=== PATIENT | female | born 1965 | race Two or more races ===

== ENCOUNTER 2017-11-14 16:39 | Inpatient (IN) | payer OTHER ==
[~2017-11-14] VITALS: Ht 157.5 cm; Wt 90.7 kg
[2017-11-14 18:13] LABS: Basophils # (auto) 0 uL; Basophils % (auto) 0.5 % (0.0-2.0); Eosinophils # (auto) 0 uL; Eosinophils % (auto) 0.5 % (0.0-7.0); Hematocrit 41.9 % (36.0-46.0); Hemoglobin 14.3 g/dL (12.2-16.2); Lymphocytes # (auto) 3.2 uL; Lymphocytes % (auto) 32.5 % (10.0-50.0); Mean Corpuscular Hemoglobin 30.9 pg (28.0-32.0); Mean Corpuscular Hgb Conc. 34.2 g/dL (32.0-36.0); Mean Corpuscular Volume 90.3 fL (80.0-100.0); Monocytes # (auto) 1.4 uL; Neutrophils # (auto) 5.1 uL; Neutrophils % (auto) 52.5 % (37.0-80.0); Nucleated Red Blood Cells % 0.1 %; Platelet Count (auto) 215 10^3/uL (140-450); Red Blood Cells 4.64 10^6/uL (4.0-5.20); Red Cell Distribution Width 13.6 % (11.8-14.3); White Blood Cell 9.8 10^3/uL (4.4-10.8)
[2017-11-14 18:32] LABS: Anion Gap 9 (5-15); Carbon Dioxide 26 mmol/L (21-32); Chloride 101 mmol/L (98-107); Glucose 199 mg/dL (74-106); Potassium 3.7 mmol/L (3.5-5.1); Sodium 136 mmol/L (136-145)
[2017-11-14 18:33] LABS: Alanine Aminotransferase 41 U/L (13-56); Alkaline Phosphatase 97 U/L (45-117); Aspartate Aminotransferase 38 U/L (15-37); BUN/Creatinine Ratio 17.6; Bilirubin, Total 0.3 mg/dL (0.2-1.0); Blood Urea Nitrogen 19 mg/dL (7-18); Calcium 8.9 mg/dL (8.5-10.1); GFR African American 69 mL/min; GFR Non-African American 57 mL/min; Total Protein 8.7 g/dL (6.4-8.2)
[2017-11-14 18:34] LABS: Albumin 3.1 g/dL (3.4-5.0); Magnesium 2.5 mg/dL (1.6-2.6)
[2017-11-14 19:33] LABS: Urine Bacteria NONE SEEN /hpf (None Seen); Urine Blood 1+ /uL (Negative); Urine Hyaline Cast FEW /lpf (0 - 2); Urine Mucus FEW (None Seen); Urine Specific Gravity 1.028 (1.001-1.035); Urine WBC 85 /hpf (0 - 5)
[2017-11-15] MEDS ORDERED: metroNIDAZOLE 500MG/100ML 100 ML IV ONE (02:30)
[2017-11-15] MEDS ORDERED: SODIUM CHLORIDE 0.9% 1,000 ML IV ONE (02:30)
[2017-11-15] MEDS ORDERED: cefTRIAXone 1GM/10ml IVPUSH 10 ML IV ONE (02:30)
[2017-11-15] MEDS ORDERED: SODIUM CHLORIDE 0.9% 1,000 ML IV SCH (05:09)
[2017-11-15] MEDS ORDERED: ONDANSETRON HCL 4 MG/2 ML VIAL IV PRN (05:15)
[2017-11-15] MEDS ORDERED: TEMAZEPAM 15 MG CAP PO PRN (05:15)
[2017-11-15] MEDS ORDERED: ACETAMINOPHEN 325 MG TAB PO PRN (05:15)
[2017-11-15] MEDS ORDERED: HYDROcodone-ACET 5/325MG TAB PO PRN (05:15)
[2017-11-15] MEDS ORDERED: DEXTROSE (50%) 50ML SYRG IV PRN (05:15)
[2017-11-15] MEDS: ACCU-CHEK COMFORT CURVE STRIP VI SCH ×3 (06:03→18:27)
[2017-11-15] MEDS: InsuLIN REG 1unit/0.01ml Soln (100units/ml) SC SCH ×3 (06:07→18:00)
[2017-11-15 09:00] VITALS: BP 145/97
[2017-11-15] MEDS ORDERED: ENOXAPARIN SOD 40 MG/0.4 ML SYRINGE SC SCH (10:00)
[2017-11-15 11:24] VITALS: BP 145/97
[2017-11-15] MEDS ORDERED: TAMSULOSIN HYDROCHLORIDE 0.4 MG CAP PO ONE (11:30)
[2017-11-15] MEDS ORDERED: MANNITOL 20 % (20GM/100ML) 62.5 ML IV ONE (11:30)
[2017-11-15] MEDS: SODIUM CHLORIDE 0.9% 1,000 ML IV SCH ×2 (11:53→22:06)
[2017-11-15] MEDS: FAMOTIDINE 20 MG TAB PO SCH ×2 (12:09→22:07)
[2017-11-15 13:00] VITALS: BP 171/90
[2017-11-15] MEDS ORDERED: MORPHINE SULFATE 4 MG/ML SYR/VIAL IV PRN (16:30)
[2017-11-15 16:51] VITALS: BP 144/94
[2017-11-15] MEDS ORDERED: TAMSULOSIN HYDROCHLORIDE 0.4 MG CAP PO SCH (18:00)
[2017-11-15 22:00] VITALS: BP 137/81
[2017-11-15] MEDS ORDERED: cefTRIAXone 1GM/10ml IVPUSH 10 ML IV SCH (22:00)
[2017-11-16] MEDS: InsuLIN REG 1unit/0.01ml Soln (100units/ml) SC SCH ×3 (00:55→12:00)
[2017-11-16] MEDS: ACCU-CHEK COMFORT CURVE STRIP VI SCH ×3 (00:57→12:04)
[2017-11-16 05:50] VITALS: BP 125/66
[2017-11-16] MEDS: SODIUM CHLORIDE 0.9% 1,000 ML IV SCH (05:58)
[2017-11-16 06:36] LABS: Basophils # (auto) 0.1 uL; Basophils % (auto) 0.6 % (0.0-2.0); Eosinophils # (auto) 0.1 uL; Eosinophils % (auto) 1.3 % (0.0-7.0); Hemoglobin 12.4 g/dL (12.2-16.2); Lymphocytes # (auto) 2.2 uL; Lymphocytes % (auto) 23.7 % (10.0-50.0); Mean Corpuscular Hemoglobin 30.5 pg (28.0-32.0); Mean Corpuscular Hgb Conc. 33.6 g/dL (32.0-36.0); Mean Corpuscular Volume 90.9 fL (80.0-100.0); Monocytes % (auto) 10.5 % (0.0-12.0); Neutrophils % (auto) 63.9 % (37.0-80.0); Platelet Count (auto) 211 10^3/uL (140-450); Red Blood Cells 4.07 10^6/uL (4.0-5.20); Red Cell Distribution Width 13.8 % (11.8-14.3); White Blood Cell 9.3 10^3/uL (4.4-10.8)
[2017-11-16 06:58] LABS: BUN/Creatinine Ratio 8.9; Calcium 9.1 mg/dL (8.5-10.1); Potassium 3.7 mmol/L (3.5-5.1)
[2017-11-16 09:50] VITALS: BP 129/79
[2017-11-16] MEDS: FAMOTIDINE 20 MG TAB PO SCH (10:00)
[2017-11-16 12:06] VITALS: BP 129/79
== END 2017-11-16 13:15 | disposition home or self-care (01) | DRG 694 ==
LOC: ER 16:44 → OVERFLOW 16:45 → CENTRAL 11-15 08:36
PROVIDERS: ADMIT Nurse Practitioner; ATTEND Family Medicine
DX: N13.2 Hydronephrosis with renal and ureteral calculous obstruction (principal); E66.01 Morbid (severe) obesity due to excess calories; E11.9 Type 2 diabetes mellitus without complications; N39.0 Urinary tract infection, site not specified; G47.00 Insomnia, unspecified; I10 Essential (primary) hypertension; Z68.36 Body mass index [BMI] 36.0-36.9, adult; Z83.3 Family history of diabetes mellitus
CPT/HCPCS: 36415; 74176; 80048; 80053; 81001; 82962; 83036; 83735; 84484; 85025; 93005; 96361; 96365; 96375; J1815; J3490